=== PATIENT | female | born 1950 | race Two or more races ===

== ENCOUNTER → 2018-03-26 | Outpatient (CLI) | payer MEDICARE, OTHER | END | disposition home or self-care (01) | LOC: MAMMO 13:11 | DX: Z12.31 Encounter for screening mammogram for malignant neoplasm of breast (principal) | CPT/HCPCS: 77063; 77067 ==

== ENCOUNTER 2018-06-06 20:42 | Emergency (ER) | payer MEDICARE, OTHER ==
[~2018-06-06] VITALS: Ht 177.8 cm; Wt 102.1 kg
[2018-06-06 20:42] VITALS: BP 173/73
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
[2018-06-06] MEDS ORDERED: DIPHTH,PERTUSS(ACELL),TET TOX 0.5 ML DISP.SYRIN. VAX IM ONE (21:30)
[2018-06-06] MEDS ORDERED: CYCLOBENZAPRINE 10 MG TABLET. PO ONE (21:30)
[2018-06-06] MEDS ORDERED: HYDROcodone/APAP 5/325MG 1 TAB TABLET PO ONE (21:30)
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
--- NOTE | 2018-06-06 21:47 | RAD ---
CT head without contrast. CT lumbar spine without contrast. HISTORY: Fell and hit head, scalp laceration. Back pain. TECHNIQUE: Noncontrast CT imaging of the head and lumbar spine with multiplanar reconstructions. CT head findings: No intracranial hemorrhage, mass, hydrocephalus, extra-axial fluid collections or infarction. No acute ischemic change. Opacification left upper maxillary sinus outside the [id number]-[id number]. Orbits and bones and mastoids unremarkable. IMPRESSION: No acute intracranial CT abnormality. CT lumbar spine findings: Lumbar vertebral body height and alignment intact. Minimal 1 mm anterolisthesis L2 on L3, 2 mm anterolisthesis of L3 on L4 and 2 mm anterolisthesis L4 on L5 associated with disc disease and facet arthritis. No fracture. No pars interarticularis defect. Paraspinal tissues are unremarkable. Disc height loss, disc bulges, endplate osteophytes and facet osteophytes with multilevel neural foraminal stenoses which are likely moderate at L2-L3 and severe at L3-L4 through L5-S1. There are spinal canal stenoses likely severe at L3-L4 and L4-L5 and qldj-[id number]-rsobbule at L2-L3 and L5-S1. IMPRESSION: No acute osseous injury of the lumbar spine. Lumbar disc disease as described above. Exposure: One or more of the following individualized dose reduction techniques were utilized for this examination: 1. Automated exposure control 2. Adjustment of the mA and/or kV according to patient size 3. Use of iterative reconstruction technique Electronically signed by: Cheko Miller MD (06/06/2018 9:43 PM) [facility]
[2018-06-06] MEDS ORDERED: MORPHINE SULFATE 10 MG/ML VIAL. IM ONE (22:30)
[2018-06-06] MEDS ORDERED: HYDR-971 PO (22:48)
[2018-06-06] MEDS ORDERED: CYCL10TA2 PO (22:48)
== END 2018-06-06 22:58 | disposition home or self-care (01) ==
LOC: ER 20:42
DX: S01.01XA Laceration without foreign body of scalp, initial encounter (principal); S30.0XXA Contusion of lower back and pelvis, initial encounter; W18.09XA Striking against other object with subsequent fall, initial encounter; Y93.89 Activity, other specified; Y92.89 Other specified places as the place of occurrence of the external cause; Y99.8 Other external cause status
CPT/HCPCS: 70450; 72131; 90471; 90715; 96372; 99284; J2270

== ENCOUNTER → 2019-04-13 | Outpatient (CLI) | payer MEDICARE, OTHER ==
[~2019-04-13] MED LIST: CYCL10TA2 PO; HYDR-3164 PO
--- NOTE | 2019-04-13 12:03 | KCIC ---
Transabdominal and transvaginal sonography of the pelvis Clinical indications: Postmenopausal bleeding. Transabdominal sonography: The uterus and ovaries are poorly visualized. Urinary bladder is not distended. Therefore, transvaginal sonography will be performed. Transvaginal sonography: The uterus is anteverted in position. The longitudinal and AP and transverse dimensions of the uterus are 9.6 cm and 4.5 cm and 6.7 cm respectively. There is a moderate amount of free fluid within the endometrial canal. A small echogenic nodule is seen within the posterior aspect of the endometrial canal and measures 6 mm in size. No color Doppler flow is seen extending into it. A nabothian cyst of the cervix is seen. No free fluid is seen within the cul-de-sac. The right ovary measures 2.0 cm and 3.0 cm and 1.4 cm in size and there is a hypoechoic nodule within the right ovary measuring 17 mm in size. Color Doppler flow is seen within the right ovary. The left ovary is not visualized. No adnexal mass is seen on the left side. IMPRESSION: Fluid is seen within the endometrial canal. The endometrial canal measures 8 mm in thickness with the fluid. There is a 6 mm echogenic nodule within the endometrial canal without color flow. This could represent a small polyp or focus of endometrial hyperplasia. Early malignancy is a possibility as well. The border of the endometrial canal appears irregular. Therefore, recommend further gynecologic evaluation. Solid hypoechoic nodule versus complex hemorrhagic cyst of the right ovary measuring 17 mm. Electronically signed by: Torsten Cordova MD (04/13/2019 12:00 PM) [id number]
== END | disposition home or self-care (01) ==
LOC: KCIC US 07:51
PROVIDERS: ATTEND Family Medicine
DX: N88.8 Other specified noninflammatory disorders of cervix uteri (principal); N83.8 Other noninflammatory disorders of ovary, fallopian tube and broad ligament
CPT/HCPCS: 76830; 76856